=== PATIENT | female | born 1965 | race Caucasian/White ===

== ENCOUNTER → 2018-01-14 | Outpatient (CLI) | payer OTHER ==
[~2018-01-14] MED LIST: AMBIEN CR12.5 MG PO; DILANTIN100 MG PO; PAMELOR50 MG PO
--- NOTE | 2018-01-14 15:55 | Diagnostic Imaging Report ---
EXAM: BONE MINERAL DENSITY HISTORY: Bone mineralization evaluation COMPARISON: None DISCUSSION: Evaluation of the left hip and lumbar spine was performed utilizing DEXA Hologic bone densitometer. The study is technically adequate. Left hip femoral neck bone mineral density: 0.62 g/cm2, T-score is -2.1, Z-score is -1.3. Left hip total bone mineral density: 0.69 g/cm2, T-score is -2.1, Z-score is -1.6. Lumbar spine total bone mineral density: 0.78 gm/cm2, T-score is -2.4, Z-score is -1.6. 10 year fracture risk major osteoporotic fracture 11% and hip fracture 0.8%. Impression: Bone mineralization by WHO Classification is low bone mass/osteopenia, the fracture risk is increased. Signed by: Dr. Lalo Quevedo M.D. on 01/14/2018 3:51 PM
== END ==
LOC: DX 14:36
PROVIDERS: ATTEND Obstetrics & Gynecology
DX: Z12.31 Encounter for screening mammogram for malignant neoplasm of breast (principal); Z13.820 Encounter for screening for osteoporosis
CPT/HCPCS: 77067; 77080

== ENCOUNTER → 2019-05-11 | Day surgery (SDC) | payer OTHER ==
[~2019-05-11] MED LIST changes: +CLONAZEPAM1 MG PO; +ESTRADIOL1 MG PO; +FENTANYL CITRATE/PF 100MCG/2 ML INJ ONE; +GLUCAGON FOR INJ 1 MG VIAL ONE; +HYOSCYAMINE 0.125 MG TAB ONE; +LIDOCAINE HCL 2% LOCAL INJ 5 ML SDV VIAL INJ ONE; +MIDAZOLAM HCL 2 MG/2 ML VIAL ONE; +OMEPRAZOLE40 MG PO; +PROPOFOL IV EMULSION 10 MG/ML 50 ML VIAL ONE
--- OUTSIDE RECORDS SUMMARY | 2019-05-11 09:22 | XMS REPORT ---
Author [facility] Address Unknown Phone Unavailable Care Team Providers Care Grinder [employer] Name Role Phone ANGELIC OBRIEN Unavailable Unavailable Problems This patient has no known problems. Allergies, Adverse Reactions, Alerts This patient has no known allergies or adverse reactions. Medications This patient has no known medications. Results Test Description Test Time Test Comments Text Results Atomic Results Result Comments BONE DXA DUAL ENERGY 2019-05-06 15:50:00 [place] [address] Patient Name: EDUARD TROTTER MR #: [id number] : 1965 Age/Sex: 53/F Req #: [id number] [facility] Physician: Ordered by: ANGELIC OBRIEN MD Report #: [id number] [place] [facility] [place]/Bed: Procedure: [id number] DX/BONE DXA DUAL ENERGY Exam Date: Exam Time: REPORT STATUS: Signed Exam: Bone mineral density study. History: Osteopenia. Co mparison: 01/14/2018 Discussion: Evaluation of the left hip and lumbar spine was performed utilizing DEXA Hologic bone densitometer. The study is technically adequate. Left hip total bone mineral density: 0.666gm/cm2, T-score is -2.3, Z-score is -1.7. Left hip femoral neck bone mineral density: 0.615gm/cm2, T-score is -2.1, Z-score is -1.2. Lumbar spine total bone mineral density:0.843gm/cm2, T-score is-1.9, Z-score is -1.0. Impression: 1. Osteopenia of the left hip, fracture risk is increased 2. Osteopenia of the lumbar spine, fracture risk is increased The BMD change versus baseline is -3.0% and the BMD change versus previous -3.0% . Least significant change (LSC) for bone mineral density as provided by software development project manager is 0.023 g/cm2 for lumbar spine and 0.027 g/cm2 for total hip. 10 -year fracture risk per WHO Fracture Risk Assessment Tool (FRAX) for: Major osteoporotic fracture is 12.0% Hip fracture is 0.8% The above fracture probability is calculated for an untreated patient. Fracture probably may be lower if the patient has received treatment. All treatment decisions require clinical judgment and consideration of individual patient factors, including patient preferences, comorbidities, previous drug use and risk factors not captured in the FRAX model (e.g. frailty, falls, vitamin D deficiency, increased bone turnover, interval significant decline in BMD). The patient's fracture risk is compared to an age-matched control. Medical evaluation for secondary causes of low bone bone mineral density may be appropriate. Correlate clinically for the necessity and timing of the next bone mineral density study. Signed by: Dr. Timo Adame M.D. on 05/06/2019 3:51 PM Dictated By: TIMO ADAME MD, MD 50 Transcribed By: CARMINA on 05/06/191550 COPY TO: ANGELIC OBRIEN MD MAMMOGRAPHY DIGITAL SCR BILAT 2019-05-04 16:46:00 [place] [address] Patient Name: EDUARD TROTTER MR #: [id number] : 1965 Age/Sex: 53/F Req #: [id number] Physician: Ordered by: ANGELIC OBRIEN MD Report #: [id number] Location: MAMMO Room/Bed: Procedure: [id number] MG/MAMMOGRAPHY DIGITAL SCR BILAT Exam Date: 05/04/19 Exam Time: 1340 REPORT STATUS: Signed #[id number] - MGSCRBIL #BILATERAL DIGITAL SCREENING MAMMOGRAM WITH CAD: 05/04/2019 CLINICAL: Routine screening. Comparison is made to exams dated: 01/14/2018 mammogram - [facility] and 01/01/2017 mammogram - [facility]. Current study contains 4 films. The tissue of both breasts is predominantly fatty. Current study was also evaluated with a Computer Aided Detection (CAD) system. No significant masses, calcifications, or other findings are seen in either breast. IMPRESSION: NEGATIVE There is no mammographic evidence of malignancy. A 1 year screening mammogram is recommended. The patient will be notified by letter of the results. ALLAN vazquez/du:05/08/2019 09:37:58 Career Law Clerk: Shadia CARMICHAEL(R)(M), [facility] letter sent: Normal Exam Mammogram BI-RADS: 1 Negative Dictated By: ALLAN LINO MD 6 Transcribed By: DU on 05/08/19936 COPY TO: ANGELIC OBRIEN MD BONE DXA DUAL ENERGY 2018-01-14 15:50:00 [place] [address] Patient Name: EDUARD TROTTER MR #: [id number] : 1965 Age/Sex: 52/F Req #: [id number] [facility] Physician: Ordered by: ANGELIC OBRIEN MD Report #: [id number] Location: DX Room/Bed: Procedure: [id number] DX/BONE DXA DUAL ENERGY Exam Date: Exam Time: REPORT STATUS: Signed EXAM: BONE MINERAL DENSITY HISTORY: Bone mineralization evaluation COMPARISON: None DISCUSSION: Evaluation of the left hip and lumbar spine was performed utilizing DEXA Hologic bone densitometer. The study is technically adequate. Left hip femoral neck bone mineral density: 0.62 g/cm2, T-score is -2.1, Z-score is -1.3. Left hip total bone mineral density: 0.69 g/cm2, T-score is -2.1, Z-score is -1.6. Lumbar spine total bone mineral density: 0.78 gm/cm2, T-score is -2.4, Z-score is -1.6. 10 year fracture risk major osteoporotic fracture 11% and hip fracture 0.8%. Impression: Bone mineralization by WHO Classification is low bone mass/osteopenia, the fracture risk is increased. Signed by: Dr. Lesly Oliva M.D. on 01/14/2018 3:51 PM Dictated By: LESLY OLIVA MD 50 Transcribed By: CARMINA on 01/14/181550 COPY TO: ANGELIC OBRIEN MD MAMMOGRAPHY DIGITAL SCR BILAT 2018-01-14 15:42:00 [place] [address] Patient Name: EDUARD TROTTER MR #: [id number] : 1965 Age/Sex: 52/F Req #: [id number] [facility] Physician: Ordered by: ANGELIC OBRIEN MD Report #: [id number] Location: DX Room/Bed: Procedure: [id number] MG/MAMMOGRAPHY DIGITAL SCR BILAT Exam Date: 01/14/18 Exam Time: 1440 REPORT STATUS: Signed #[id number] - MGSCRBIL #BILATERAL DIGITAL SCREENING MAMMOGRAM WITH CAD: 01/14/2018 CLINICAL: Routine screening. Comparison is made to exam dated: 01/01/2017 mammogram - [facility]. Current study contains 4 films. The tissue of both breasts is predominantly fatty. Current study was also evaluated with a Computer Aided Detection (CAD) system. No significant masses, calcifications, or other findings are seen in either breast. There has been no significant interval change. IMPRESSION: NEGATIVE There is no mammographic evidence of malignancy. A 1 year screening mammogram is recommended. The patient will be notified by letter of the results. Elsie garzon/du:01/27/2018 16:28:54 Career Law Clerk: Shadia CARMICHAEL(R)(M), [facility] letter sent: Normal Exam Mammogram BI-RADS: 1 Negative Dictated By: ELSIE SOLORIO DO 27 Transcribed By: DU on 01/27/181627 COPY TO: ANGELIC OBRIEN MD
[2019-05-11 14:15] VITALS: BP 140/88
== END | disposition home or self-care (01) ==
LOC: OR 09:20
PROVIDERS: ATTEND Internal Medicine Gastroenterology
DX: Z12.11 Encounter for screening for malignant neoplasm of colon (principal); D12.3 Benign neoplasm of transverse colon; D12.4 Benign neoplasm of descending colon; K29.50 Unspecified chronic gastritis without bleeding; K22.2 Esophageal obstruction; K20.9 Esophagitis, unspecified; K21.9 Gastro-esophageal reflux disease without esophagitis; K44.9 Diaphragmatic hernia without obstruction or gangrene; K57.30 Diverticulosis of large intestine without perforation or abscess without bleeding; K64.8 Other hemorrhoids; R56.9 Unspecified convulsions; F32.9 Major depressive disorder, single episode, unspecified; F41.9 Anxiety disorder, unspecified; Z88.6 Allergy status to analgesic agent; Z88.1 Allergy status to other antibiotic agents; Z88.0 Allergy status to penicillin; Z01.810 Encounter for preprocedural cardiovascular examination; Z68.30 Body mass index [BMI] 30.0-30.9, adult; Z87.891 Personal history of nicotine dependence
CPT/HCPCS: 43239; 43450; 45385; 93005; J1610; J2001; J2250; J2704; J3010; 45378; 45384

== ENCOUNTER → 2019-09-23 | Emergency (ER) | payer OTHER ==
[~2019-09-23] MED LIST changes: -FENTANYL CITRATE/PF 100MCG/2 ML INJ ONE; -GLUCAGON FOR INJ 1 MG VIAL ONE; -HYOSCYAMINE 0.125 MG TAB ONE; -LIDOCAINE HCL 2% LOCAL INJ 5 ML SDV VIAL INJ ONE; -MIDAZOLAM HCL 2 MG/2 ML VIAL ONE; -PROPOFOL IV EMULSION 10 MG/ML 50 ML VIAL ONE
== END | disposition left against medical advice (07) ==
LOC: ER 21:36
DX: T14.90XA Injury, unspecified, initial encounter (principal)